=== PATIENT | female | born 1990 | race Asian ===

== ENCOUNTER 2021-06-25 02:26 | Inpatient (IN) ==
[2021-06-25] MEDS: LACTATED RINGER'S 1,000 ML IV PRN ×2 (03:00→04:05)
[2021-06-25] MEDS ORDERED: OXYTOCIN 30 UNITS/500 ML BAG IV PRN ×2 (03:01→11:32)
--- NOTE | 2021-06-25 03:07 | History & Physical Report ---
Date of Service June 25, 2021 Assessment & Plan (1) Encounter for supervision of normal intrauterine in primigravida, antepartum: Plan: Admit to L&D. EFM/toco, labs, IV fluids. History of Present Illness Chief Complaint: labor Primary Care Provider: SANTIAGO PCP 30yo @ 39 6/7, presented in labor. Large gush of red tinged fluid at home and contractions. +FM. complicated by GDMA1. Allergies Allergy/AdvReac Type Severity Reaction Status Date / Time No Known Allergies Allergy Verified 06/20/21 16:07 Home Medications Medication Instructions Recorded Confirmed Type folic acid PO 11/21/20 06/20/21 History prenat.vits,ankita,ywb-orij-jmlwu PO 11/21/20 06/20/21 History acetone (urine) test (Ketone Urine #50 ea 03/15/21 06/20/21 Rx Test) blood sugar diagnostic (OneTouch #150 ea 03/15/21 06/20/21 Rx Verio test strips) blood-glucose meter (OneTouch #1 ea 03/15/21 06/20/21 Rx Verio Flex meter) lancets 33 gauge (OneTouch Delica #150 ea 03/15/21 06/20/21 Rx Plus Lancet) Patient History Medical History (Updated 02/27/21 @ 12:22 by Norma Cueva) History of varicella vaccination Surgical History (Updated 11/21/20 @ 11:19 by Bessie Goss, ZACKERY) No pertinent past surgical history Family History (Updated 11/21/20 @ 11:07 by Bessie Goss, ZACKERY) Grandfather (Maternal) Myocardial infarction Denies family history of Ovarian cancer Prostate cancer Breast cancer Colorectal cancer Social History (Updated 11/21/20 @ 11:09 by Bessie Goss, ZACKERY) Smoking Status: Never smoker marital status: Single marital status details: kassie (25) [phone] Current Living Situation: Alone Current Living Situation Comment: lives alone. 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 No s/s chorio or abruption. Skin: no rashes, warm and dry Psychiatric: A+Ox3, euthymic affect Results & Data ([facility]) Vital Signs (Past 12 Hours) Vital Signs Temp Pulse Resp BP 06/25/21 02:49 36.8 C 18 06/25/21 02:47 108 H 106/65 Monitoring External Monitor FHT Cat 1 [place] Q 2-3 Coding Level of Care Code None Diagnoses Encounter for supervision of normal intrauterine in primigravida, antepartum Z34.00
[2021-06-25 03:29] LABS: Hematocrit (blood only) 38.4 % (37-47); Hemoglobin 12.8 g/dL (12.0-16.0); Mean Corpuscular Hemoglobin 30.8 pg (25-34); Mean Corpuscular Hgb Conc 33.3 g/dL (32-36); Mean Corpuscular Volume 92.3 fL (80-100); Mean Platelet Volume 10.6 fL (7.4-10.4); Platelet Count 272 K/uL (130-400); RDW Coefficient of Variation 15.7 % (11.5-14.5); RDW Standard Deviation 52.7 fL (36.4-46.3); Red Blood Count 4.16 M/uL (4.2-5.4); White Blood Count 15.42 K/uL (4.8-10.8)
[2021-06-25] MEDS ORDERED: ePHEDrine sulfate 50 MG/ML AMP ONE (03:33)
[2021-06-25] MEDS ORDERED: BUPIVACAINE 0.25% 30 ML VIAL ONE (03:33)
[2021-06-25] MEDS ORDERED: SODIUM CHLORIDE 0.9% INJ 10 ML VIAL ONE (03:33)
[2021-06-25] MEDS ORDERED: fentaNYL citrate 100 MCG/2 ML VIAL ONE (03:34)
[2021-06-25] MEDS ORDERED: fentaNYL 2MCG/ML ROPIVACAINE 1.25MG/ML 100 ML BAG EPI ONE (03:34)
[2021-06-25] MEDS ORDERED: NALOXONE HCL 0.4 MG/1 ML VIAL/CARP IV PRN (03:40)
[2021-06-25] MEDS ORDERED: diphenhydrAMINE 50 MG/ML VIAL IV PRN (03:40)
[2021-06-25] MEDS ORDERED: ONDANSETRON INJ 2 MG/ML 2 ML VIAL IV PRN (03:40)
[2021-06-25] MEDS ORDERED: NALOXONE HCL 1 MG in SODIUM CHLORIDE 0.9% 1000ML 1,000 ML IV PRN (03:40)
[2021-06-25] MEDS ORDERED: fentaNYL 2MCG/ML ROPIVACAINE 1.25MG/ML 100 ML BAG EPI PRN (03:40)
[2021-06-25] MEDS ORDERED: NALBUPHINE HCL INJ 10 MG/ML AMP IV PRN (03:40)
[2021-06-25] MEDS ORDERED: ePHEDrine sulfate 50 MG/ML AMP IV PRN (03:40)
--- NOTE | 2021-06-25 03:42 | Anesthesiology Consultation ---
Date of Service June 25, 2021 History Height/Weight Height: 5 ft 1 in Weight: 53.07 kg Allergies Allergy/AdvReac Type Severity Reaction Status Date / Time No Known Allergies Allergy Verified 06/20/21 16:07 Medications Home Medications Medication Instructions Recorded Confirmed Last Taken folic acid PO 11/21/20 06/20/21 Unknown prenat.vits,ankita,kok-svwj-trzno PO 11/21/20 06/20/21 Unknown acetone (urine) test (Ketone Urine #50 ea 03/15/21 06/20/21 Unknown Test) blood sugar diagnostic (OneTouch #150 ea 03/15/21 06/20/21 Unknown Verio test strips) blood-glucose meter (OneTouch #1 ea 03/15/21 06/20/21 Unknown Verio Flex meter) lancets 33 gauge (OneTouch Delica #150 ea 03/15/21 06/20/21 Unknown Plus Lancet) Active Medications Generic Name Dose Route Start Last Admin Trade Name Freq PRN Reason Stop Dose Admin Lactated Ringer's 1,000 mls @ 125 mls/hr 06/25/21 03:01 06/25/21 03:00 Lr IV 06/27/21 03:00 999 mls/hr .Q8H PRN Administration L&D Protocol Protocol NPO Date Last Intake of Fluids: 06/25/21 Time Last Intake of Fluids: 02:00 Date Last Intake of Solids: 06/24/21 Time Last Intake of Solids: 20:00 Past Medical History Medical History History of varicella vaccination Exercise / Class Metabolic Activity II 4-5 Yardwork/Stairs/Walk up hill Past Family History Family History Grandfather (Maternal) Myocardial infarction Denies family history of Ovarian cancer Prostate cancer Breast cancer Colorectal cancer Past Surgical History Surgical History No pertinent past surgical history Past Anesthesia History No Hx of Anesthesia Complications and No Family Hx of Anesthesia Complications History of PONV No Hx of PONV and No Hx of Motion Sickness Social History Smoking Status: Never smoker Do You Dip or Chew Tobacco: No Hx Alcohol Use: No Hx Substance Use: No substance use type: does not use Physical Exam Vital Signs Last Vital Signs Temp 36.8 C 06/25/21 03:21 Pulse 102 H 06/25/21 03:35 Resp 18 06/25/21 03:21 BP 106/65 06/25/21 02:47 Pulse Ox 99 06/25/21 03:35 Testing Laboratory Results 06/25/21 03:19
--- NOTE | 2021-06-25 04:50 | Labor Progress Brief Note ---
Date of Service June 25, 2021 Subjective Comfortable now with epidural. FHT 140s with early decels with ctx. Occ variable decels. toco Q 2-4 min Cervix 8/100/0, AROM forebag clear fluid. Assessment & Plan Admission and Anticipated Discharge Date Admission Date: June 25, 2021 Results & Data ([facility]) Vital Signs (Past 12 Hours) Vital Signs Temp Pulse Resp BP Pulse Ox 06/25/21 04:45 85 97 06/25/21 04:40 80 96 06/25/21 04:35 104 H 97 06/25/21 04:33 81 94 06/25/21 04:30 89 97 06/25/21 04:26 97 H 106/73 06/25/21 04:25 98 H 96 06/25/21 04:20 101 H 97 06/25/21 04:15 93 H 96 06/25/21 04:10 97 H 97 06/25/21 04:06 98 H 119/80 06/25/21 04:05 98 H 97 06/25/21 04:03 102 H 114/75 06/25/21 04:00 104 H 96 06/25/21 03:59 115 H 109/73 06/25/21 03:57 101 H 110/74 06/25/21 03:55 100 H 97 06/25/21 03:53 101 H 111/72 06/25/21 03:50 108 H 99 06/25/21 03:45 114 H 99 06/25/21 03:40 104 H 99 06/25/21 03:35 102 H 99 06/25/21 03:30 97 H 98 06/25/21 03:25 101 H 99 06/25/21 03:21 36.8 C 18 98 06/25/21 03:20 98 H 98 06/25/21 03:15 101 H 98 06/25/21 02:49 36.8 C 18 06/25/21 02:47 108 H 106/65 Coding Level of Care Code None
[2021-06-25] MEDS ORDERED: HYDROCORTISONE ACETATE 25 MG SUPP PR PRN (11:32)
[2021-06-25] MEDS ORDERED: bisacodyL 10 MG SUPP PR PRN (11:32)
[2021-06-25] MEDS ORDERED: SUPERCREAM 0.870% 15 GM JAR EXT PRN (11:32)
[2021-06-25] MEDS ORDERED: BENZOCAINE 20% AER SPR 82.5 GM CAN EXT PRN (11:32)
[2021-06-25] MEDS ORDERED: DIPHTHERIA/TETANUS/PERTUSSIS 0.5 ML SYR/VIAL IM ONE (11:32)
--- NOTE | 2021-06-25 12:26 | Anesthesia Procedure Note ---
Date of Service June 25, 2021 Anesthesia Post Epidural Note Vital Signs Vital Signs: Temp Pulse Resp BP Pulse Ox 37.2 C 98 H 18 109/66 99 06/25/21 07:05 06/25/21 11:58 06/25/21 11:10 06/25/21 11:58 06/25/21 10:45 Notes Mental Status: alert / awake / arousable Nausea / Vomiting: adequately controlled Pain: adequately controlled Airway Patency, RR, SpO2: stable & adequate BP & HR: stable & adequate Hydration State: stable & adequate Neuraxial Anesthesia: was administered and sensory block is resolving Anesthetic Complications: no major complications apparent and Pt Satisfied with anesthetic care Epidural: Removed without complications and With tip intact
[2021-06-25] MEDS: IBUPROFEN 600 MG TAB PO PRN ×3 (12:47→22:30)
[2021-06-25] MEDS: ACETAMINOPHEN 325 MG TAB PO PRN (17:50)
[2021-06-25] MEDS: DOCUSATE SODIUM 100 MG CAP PO SCH (21:17)
--- NOTE | 2021-06-25 22:46 | Delivery Summary ---
DATE OF SERVICE: 06/25/2021 PROCEDURE: Normal spontaneous vaginal delivery with second-degree perineal laceration repair, bilateral sulcal laceration repair, and bilateral labia majora laceration repairs. SURGEON: Juve Martin MD PREOPERATIVE DIAGNOSES: 1. Single intrauterine at 39 weeks 6 days gestational age. 2. Spontaneous labor. 3. Spontaneous rupture of membranes. 4. A1 Gestational diabetes. POSTOPERATIVE DIAGNOSES: 1. Single intrauterine at 39 weeks 6 days gestational age. 2. Spontaneous labor. 3. Spontaneous rupture of membranes. 4. A1 Gestational diabetes. 5. Status post delivery. ESTIMATED BLOOD LOSS: 400 mL. DRAINS: Straight catheter after delivery. URINE OUTPUT: Approximately 100 mL via straight cath. COMPLICATIONS: None. FINDINGS: Viable male with weight of 7 pounds 3.9 ounces and Apgars of 6 and 8 at one and five minutes respectively. INDICATIONS: The patient is a 30-year-old G1, P0, admitted at 39 weeks 6 days gestational age with spontaneous rupture of membranes in active labor. The patient progressed in labor without augmentation. She received epidural for anesthesia and progressed to complete-complete, +2 station, at which time she started to push. The patient was noted to have decelerations with pushing and I presented for evaluation and to assist with the pushing process. After approximately 10-15 minutes of pushing, the patient was noted to have a prolonged decel to around the 80s. At that time, we discussed assisted delivery with a vacuum assist. After discussion of risks of the procedure, the patient and her partner both verbally consented for the vacuum-assisted vaginal delivery. DESCRIPTION OF PROCEDURE: The patient progressed to 2 cm dilated, 100% effaced, positive 2 station. A vacuum was placed due to intolerance of the pushing process. The vacuum was placed 2 cm anterior to posterior fontanelle and was insufflated to within the green zone. The vacuum assist was continued over 3 contractions and was removed once was achieved. The head then fully delivered followed quickly by the shoulders and remaining body. was noted to have a good tone, but without spontaneous cry and stimulation and suction bulb were used to help stimulate the . The was noted to have continued good tone, but still was not noted to have spontaneous cry. A decision was made to double clamp and cut the cord. was taken over to the waiting nursery staff for further evaluation. Cord segment and cord blood were obtained. Attention was then turned to delivery of the placenta, which was delivered spontaneously intact, 3-vessel cord. On inspection of the perineum, vagina, and cervix, there was noted to be a second-degree perineal laceration. There was also noted to be bilateral deep sulcal lacerations as well as bilateral labia majora lacerations. A small right perineal hematoma present during repair and noted to be stable throughout repair. All lacerations were repaired with 3-0 Vicryl in continuous running stitch. A crown suture was performed at the perineal laceration with excellent cosmesis noted. Needle, sponge, and instrument counts were correct at the completion of the case. was noted to be vigorous shortly after delivery with Apgars as noted above. Job ID: [id number] [facility]
[2021-06-26] MEDS: ACETAMINOPHEN 325 MG TAB PO PRN ×2 (05:38→12:32)
[2021-06-26] MEDS: IBUPROFEN 600 MG TAB PO PRN ×4 (05:38→18:36)
--- NOTE | 2021-06-26 07:22 | Obstetrical Progress Note ---
Date of Service <Bertha Covarrubias DO - Last Filed: 06/26/21 07:54> June 26, 2021 Assessment & Plan <Bertha Covarrubias DO - Last Filed: 06/26/21 07:54> (1) Encounter for care and examination after delivery: (2) Gestational diabetes mellitus (GDM) affecting , antepartum: 30 yo post op day1 from with GDM, doing well. -Continue routine post care. -vital signs reviewed and WNL (Tmax 36.5) -Blood Type A+, GBS-, Rubella immune -Encourage ambulation, monitor and control pain with Motrin, tylenol PRN, resume regular diet, monitor lochia -encourage breast feeding -hemoglobin 8.9 -Some concern of retained POC in uterus given pain and bleeding, continue to monitor Day #:: 1 <Juve Martin MD - Last Filed: 06/26/21 08:08> (1) Encounter for care and examination after delivery: (2) Gestational diabetes mellitus (GDM) affecting , antepartum: Subjective <Bertha Covarrubias DO - Last Filed: 06/26/21 07:54> Ambulation: limited ambulation (due to back pain) Voiding: no voiding problems Passing Gas:: Yes Diet Tolerance:: regular diet Lochia:: Moderate Feeding Type:: breast feeding Current Pain Level(1-10): 7 Review of Systems Positive pain with urination Denies fever, chills, sweats Denies shortness of breath, difficulty breathing, chest pain, palpitations, chest pressure. Denies breast pain. Denies dysuria. Denies headache or changes in vision. Physical Exam <DO Amish Beard Last Filed: 06/26/21 07:54> General: Alert, oriented. No acute distress. Cardiac: Regular rate and rhythm, no murmurs/rubs/gallops. Respiratory: Clear to auscultation bilaterally a/p, no wheezes/rales/rhonchi. No increased work of breathing. Symmetrical chest rise. No respiratory distress. Abdomen: Pain noted at the region of the uterus, Soft, nondistended. Bowel sounds present. Uterus: Uterine fundus firm, palpable 1 cm above umbilicus. Lower Extremities: No lower extremity edema or swelling. No deep calf pain. Alyssia's negative bilaterally.. Results & Data ([facility]) <Bertha Covarrubias DO - Last Filed: 06/26/21 07:54> Vital Signs (Past 12 Hours) Vital Signs Temp Pulse Resp BP 06/26/21 03:00 36.5 C 63 18 96/62 L 06/26/21 00:10 36.3 C L 89 18 96/61 L 06/25/21 19:45 36.3 C L 82 18 95/59 L <Juve Martin MD - Last Filed: 06/26/21 08:08> Co-Signing Physician Notes Patient seen and evaluated and agree with the above finding and plan. Hematoma stable on exam this am. Routine OB care. Resident Activity Tracking <Bertha Covarrubias DO - Last Filed: 06/26/21 07:54> Resident Involvement: Resident Care Provided Care Provided: OB Delivery
[2021-06-26 07:31] LABS: Hematocrit (blood only) 26.9 % (37-47); Hemoglobin 8.9 g/dL (12.0-16.0)
[2021-06-26] MEDS: DOCUSATE SODIUM 100 MG CAP PO SCH ×2 (09:26→20:38)
[2021-06-26] MEDS: FERROUS SULFATE 325 MG TAB PO SCH (09:26)
[2021-06-26] MEDS: PRENATAL VITAMIN 1 TAB PO SCH (09:27)
[2021-06-26] MEDS ORDERED: bisacodyL 5 MG TABEC PO SCH (20:00)
[2021-06-27] MEDS: IBUPROFEN 600 MG TAB PO PRN ×3 (00:15→08:51)
--- NOTE | 2021-06-27 06:02 | Obstetrical Progress Note ---
Date of Service <Bertha Covarrubias DO - Last Filed: 06/27/21 06:30> June 27, 2021 Assessment & Plan <Bertha Covarrubias DO - Last Filed: 06/27/21 06:30> (1) Encounter for care and examination after delivery: (2) Gestational diabetes mellitus (GDM) affecting , antepartum: 30 yo post op day2 from with GDM, doing well. -Continue routine post care. -vital signs reviewed and WNL (Tmax 36.6) -Blood Type A+, GBS-, Rubella immune -Encourage ambulation, monitor and control pain with Motrin, tylenol PRN, resume regular diet, monitor lochia -encourage breast feeding -hemoglobin 8.9 Day #:: 2 <Cheryl Esqueda MD - Last Filed: 06/27/21 07:01> (1) Encounter for care and examination after delivery: (2) Gestational diabetes mellitus (GDM) affecting , antepartum: Subjective <DO Amish Beard Last Filed: 06/27/21 06:30> Ambulation: ambulating normally Voiding: no voiding problems Passing Gas:: Yes Diet Tolerance:: regular diet Lochia:: Small Feeding Type:: breast feeding Current Pain Level(1-10): 6 Review of Systems Denies fever, chills, sweats Denies shortness of breath, difficulty breathing, chest pain, palpitations, chest pressure. Denies breast pain. Denies dysuria. Denies headache or changes in vision. Physical Exam <DO Amish Beard Last Filed: 06/27/21 06:30> General: Alert, oriented. No acute distress. Cardiac: Regular rate and rhythm, no murmurs/rubs/gallops. Respiratory: Clear to auscultation bilaterally a/p, no wheezes/rales/rhonchi. No increased work of breathing. Symmetrical chest rise. No respiratory distress. Abdomen: nontender, Soft, nondistended. Bowel sounds present. Uterus: Uterine fundus firm, palpable 1 cm above umbilicus. Lower Extremities: No lower extremity edema or swelling. No deep calf pain. Alyssia's negative bilaterally.. Results & Data ([facility]) <Bertha Covarrubias DO - Last Filed: 06/27/21 06:30> Vital Signs (Past 12 Hours) Vital Signs Temp Pulse Resp BP Pulse Ox 06/26/21 23:10 36.6 C 81 16 110/82 97 06/26/21 19:37 36.6 C 79 20 102/66 <Cheryl Esqueda MD - Last Filed: 06/27/21 07:01> Co-Signing Physician Notes Resident Physician Supervision Note: I interviewed and examined the patient. Discussed with Dr. Covarrubias and agree with findings and plan as documented in the note. Any exceptions or clarifications are listed here: [ ] Documented By: Cheryl Esqueda MD, FACOG Resident Activity Tracking <Bertha Covarrubias DO - Last Filed: 06/27/21 06:30> Resident Involvement: Resident Care Provided Care Provided: OB Delivery
[2021-06-27] MEDS: PRENATAL VITAMIN 1 TAB PO SCH (08:51)
[2021-06-27] MEDS: DOCUSATE SODIUM 100 MG CAP PO SCH (08:51)
[2021-06-27] MEDS: FERROUS SULFATE 325 MG TAB PO SCH (08:51)
--- NOTE | 2021-07-02 01:51 | Discharge Summary (DS) ---
DATE OF ADMISSION: 06/25/2021. DATE OF DISCHARGE: 06/27/2021. HOSPITAL COURSE: The patient was admitted for labor and proceeded to a vacuum-assisted vaginal deliv zana with second-degree bilateral vaginal lacerations, perineal and vaginal lacerations repaired per d elivery summary. The patient remained in-house for day #2 without complication or concern and was discharged home in stable condition. The patient was both provided written and verbal disch arge instructions with planned followup at 6 weeks or as needed. Job ID: [id number]
== END 2021-06-27 12:00 | disposition home or self-care (01) | DRG 806 ==
LOC: OPB 02:26 → 4S1 02:29 → 4S2 14:20